=== PATIENT | male | born 1995 | race Caucasian/White ===

== ENCOUNTER 2017-01-01 12:47 | Emergency (ER) | payer OTHER ==
[~2017-01-01] VITALS: Ht 180.3 cm; Wt 65.9 kg
[~2017-01-01 12:47] MED LIST: HYDR-4003 PO; NAPR500T PO
[2017-01-01 12:53] VITALS: BP 136/74; PULSE 93; RESP 16; O2SAT 98
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
[2017-01-01] MEDS ORDERED: Ketorolac 30 mg/mL 2 mL Inj IM ONE (13:40)
--- NOTE | 2017-01-01 14:06 | DRSVH ---
PROCEDURE: X-RAY LEFT KNEE, THREE VIEWS ([id number]) INDICATIONS: knee pain and swelling TECHNIQUE: 4 views of the knee were acquired. COMPARISON: None. FINDINGS: Bones: No fractures or dislocations. No suspicious bony lesions. Mild lateral patellar tilt Soft tissues: Possible small joint effusion. No suspicious soft tissue calcifications. IMPRESSION: Mild lateral patellar tilt. Possible small joint effusion. No fracture Dictated by: Bob Fine M.D. on 01/01/2017 at 14:04 Approved by: Bob Fine M.D. on 01/01/2017 at 14:05
[2017-01-01 14:40] VITALS: BP 130/76; PULSE 88; RESP 18; O2SAT 97
== END 2017-01-01 14:31 | disposition home or self-care (01) ==
LOC: SED 12:47
DX: S83.92XA Sprain of unspecified site of left knee, initial encounter (principal); V19.88XA Pedal cyclist (driver) (passenger) injured in other specified transport accidents, initial encounter; Y92.480 Sidewalk as the place of occurrence of the external cause; Y93.55 Activity, bike riding; Y99.8 Other external cause status; M25.462 Effusion, left knee; F17.200 Nicotine dependence, unspecified, uncomplicated; Z98.890 Other specified postprocedural states
CPT/HCPCS: 73562; 96372; 99284; J1885

== ENCOUNTER 2017-03-24 22:47 | Emergency (ER) | payer OTHER ==
[~2017-03-24] VITALS: Ht 180.3 cm; Wt 65.9 kg
[2017-03-24 22:51] VITALS: BP 139/85; PULSE 85; RESP 24; O2SAT 97
--- NOTE | 2017-03-24 23:07 | ED.REPORT ---
HPI-URI / Cough / Cold Date of Service March 24, 2017 ED Provider: Dr. Sony Argueta D.O. A healthy 22 year old male presents to the ED with a cough onset ten days ago. The patient also reports pleuritic chest pain, headache, and subjective fever. He denies other symptoms. His brother is also ill. Nursing Notes Stated Complaint: COUGH, DIFFICULTY BREATHING Chief Complaint: Respiratory Complaints Nursing Notes Reviewed: Yes Allergies: Coded Allergies: No Known Allergies (Verified Allergy, Unknown, 03/24/17) No Active Prescriptions or Reported Meds General Time Seen by MD: 23:07 Chief Complaint Cough, non-productive Hx Obtained From: Patient Arrived By: Walk-in Onset Occurred: 1 week ago (10 days) Symptom Duration: Since onset Location: : Chest Quality: Painful, Pleuritic Severity: Current: Moderate Severity: Maximum: Moderate Pertinent Negative: Relieved by nothing Context: Immunization Status Immunizations Up to Date: Tetanus Recent Healthcare: No recent doctor visit Past Medical History Past Medical History Left ankle fracture Past Surgical History Right knee surgery Smoking History Current Every Day Smoker Social History Alcohol Use: "Social" Drug Use: Denies drug use Ambulatory Status Independent Review of Systems Constitutional: Reports: Fever (Subjective) Respiratory: Reports: Non-productive cough, Pleuritic pain, Denies: Shortness of breath GI: Denies: Diarrhea, Vomiting Neurologic: Reports: Headache Complete sys rev & neg: except as marked. Cardiovascular: Reports: Chest pain Physical Exam Initial Vital Signs Vital Signs (First) Date Time Temp Pulse Resp B/P Pulse Ox O2 Delivery O2 Flow Rate FiO2 03/24/17 22:51 36.7 85 24 139/85 97 Room Air Initial VS: Reviewed Head / Eyes: Atraumatic, Normocephalic Neck: Supple, Full range of motion Cardiovascular: Regular rate & rhythm, Heart sounds normal Skin: Warm, Dry, No cyanosis Neurologic: Alert, Oriented, Nonfocal Psychiatric: Mood/affect normal, Behavior normal, Normal thought content General/Constitutional: Awake, Alert Respiratory / Chest: No respiratory distress Diminished Breath Sounds: Positive: Decreased bilateral Crackles left base Interpretation & Diagnostics Lab Results Interpretation Test 03/24/17 23:35 D-Dimer < 0.50mg/L FEU (<0.50) Hold Logan Top Tube Received (Received) X-Ray Chest Interpretation Chest Xray Interpretation: No lobar infiltrates View: AP & lat Interpretation / Wet Read by: Teddy read ED physician Re-Eval/Medical Decision Source of Hx: Old records Re-Evaluation/Progress : Time of Eval: 00:12 Patient Status: Condition improved Re-Evaluation/Progress Note: Patient rechecked. He is no longer coughing and he has better air entry. Discussed with patient x-ray and lab results, diagnosis, and plan for discharge. Follow-up and return to the ER instructions given. Patient agrees with plan for care and all questions were addressed. Counseled Regarding: Diagnosis, Lab results, Need for follow-up, When/why to return to ED Discharge & Departure Impression: Primary Impression: Acute bronchitis Bronchitis organism: unspecified organism Qualified Code: J20.9 - Acute bronchitis, unspecified Disposition: Home Discharge Condition All VS Reviewed: Yes Condition: Improved Patient Instructions: Acute Bronchitis (GEN) Additional Instructions: Thank you for entrusting us with your care. Finish the Z-pack. Prednisone daily for three days. Do not smoke. Call your primary care provider on Saturday for a follow-up appointment. Return to the ER with any new or worsening symptoms. Referrals: Naye Lopez (PCP) Carin Attestation Portions of this note were transcribed by Shelly Antonio. I, Dr. Argueta, personally performed the history, physical exam, and medical decision-making; I reviewed and confirmed the accuracy of the information in the transcribed note. Signed by: Carin Borrero, 03/25/2017, 00:55 copies to: Naye Lopez Todd P DO March 24, 2017 23:07 SHELLY ANTONIO March 24, 2017 23:15
[2017-03-24] MEDS ORDERED: Albuterol-Ipratropium 3 mL Inhalation Solution NEB ONE (23:10)
[2017-03-24] MEDS ORDERED: predniSONE 20 mg Tablet PO ONE (23:10)
[2017-03-24] MEDS ORDERED: HYDROcodone-APAP 5-325 mg Tablet PO ONE (23:10)
[2017-03-24 23:29] VITALS: PULSE 81; RESP 18; O2SAT 97
--- NOTE | 2017-03-25 08:09 | DRSVH ---
PROCEDURE: X-RAY CHEST, TWO VIEWS ([id number]) INDICATIONS: cough TECHNIQUE: 2 views of the chest were acquired. COMPARISON: [facility], , CHEST 1VW (PORTABLE), 12/21/2011, 14:56. FINDINGS: Surgical changes and devices: None. Lungs and pleura: No pleural effusions or pneumothorax. Lungs are clear. Mediastinum: Mediastinal contours are normal. Heart size is normal. Bones and chest wall: No suspicious bony abnormalities. Soft tissues appear unremarkable. IMPRESSION: No acute disease. Dictated by: Bob Fine M.D. on 03/25/2017 at 8:07 Approved by: Bob Fine M.D. on 03/25/2017 at 8:08
== END 2017-03-25 00:27 | disposition home or self-care (01) ==
LOC: SED 22:47
DX: J20.9 Acute bronchitis, unspecified (principal); F17.200 Nicotine dependence, unspecified, uncomplicated
CPT/HCPCS: 36415; 71020; 85378; 94664; 99284; J7620